=== PATIENT | male | born 1935 | race Caucasian/White ===

== ENCOUNTER 2017-02-07 09:51 | Emergency (ER) | payer MEDICARE ==
[~2017-02-07] VITALS: Ht 177.8 cm; Wt 79.0 kg
[~2017-02-07 09:51] MED LIST: AMANTADINE100 MG PO; ATORVASTATIN CA40 MG PO; BACTRIM1 TAB PO; CELEXA20 MG PO; LANTUS100 MG/ML SC; LISINOPRIL10 MG PO; LOPID600 MG PO; METHIMAZOLE10 MG PO; PYRIDIUM200 MG PO
[2017-02-07 11:46] LABS: HEMATOCRIT 42.2 % (39.0-50.0); HEMOGLOBIN 13.7 g/dl (14.0-18.0); IMMATURE GRANULOCYTES 0.9 % (0.0-1.0); MEAN CELL VOLUME 84.4 fL CALC (80.0-100.0); MEAN CORPUSCULAR HGB 27.4 pG CALC (26.0-32.0); MEAN CORPUSCULAR HGB CONC 32.5 g/L CALC (32.0-36.0); NEUT# 13.64 thou/uL (1.82-7.42); RED CELL DISTRI WIDTH 14.1 % (11.5-15.5)
[2017-02-07 12:08] LABS: ALBUMIN 4.2 g/dL (3.2-5.0); ALKALINE PHOSPHATASE 103 u/l (38-126); ANION GAP 23 (6-22 (CALC)); BILIRUBIN, TOTAL 1.9 mg/dL (0.0-1.4); BUN 29 mg/dL (8-23); BUN/CREATININE RATIO 30 (12-20 (CALC)); CALCIUM 9.8 mg/dL (8.4-10.2); CARBON DIOXIDE 24 mmol/l (22-30); CHLORIDE 97 mmol/l (95-108); GFR > 60 ML/MIN (>=60 (CALC)); GFR FOR AFR.AMER. > 60 ML/MIN (>=60 (CALC)); GLUCOSE 322 mg/dL (82-115); POTASSIUM 4.9 mmol/l (3.5-5.1); SGOT/AST 24 u/l (19-48); SGPT/ALT 28 u/l (11-66); SODIUM 138 mmol/l (137-146); TOTAL PROTEIN 7.3 g/dL (6.3-8.2)
[2017-02-07 12:34] LABS: URINE BILIRUBIN - DIPSTICK MODERATE (NEGATIVE); URINE BLOOD DIPSTICK SMALL (NEGATIVE); URINE CLARITY SLIGHT CLOUDY; URINE COLOR DK. YELLOW; URINE GLUCOSE - DIPSTICK >=1000 mg/dL (NEGATIVE); URINE KETONE 40 mg/dL (NEGATIVE); URINE LEUK ESTERASE NEGATIVE (NEGATIVE); URINE NITRITE - DIPSTICK NEGATIVE (Negative); URINE PH 5.5 (4.5-8.0); URINE PROTEIN - DIPSTICK 100 mg/dL (NEG-TRACE); URINE SPECIFIC GRAVITY >=1.030
[2017-02-07 12:35] LABS: URINE EPITHELIAL CELLS FEW EPI/hpf (0-FEW); URINE MUCUS MODERATE hpf (NONE-FEW); URINE RBC 0-2 RBC/hpf (0-5)
[2017-02-07] MEDS ORDERED: RESTORIL15 M1 PO (12:54)
[2017-02-07 13:21] VITALS: BP 138/71
== END 2017-02-07 13:11 | disposition home or self-care (01) ==
LOC: ED 09:51
PROVIDERS: Emergency Medicine
DX: R10.31 Right lower quadrant pain (principal); R11.2 Nausea with vomiting, unspecified; Z79.899 Other long term (current) drug therapy; I10 Essential (primary) hypertension; C34.90 Malignant neoplasm of unspecified part of unspecified bronchus or lung; Z86.73 Personal history of transient ischemic attack (TIA), and cerebral infarction without residual deficits; R53.1 Weakness

== ENCOUNTER 2017-07-10 16:53 | Inpatient (IN) | payer MEDICARE ==
[~2017-07-10] VITALS: Ht 180.3 cm; Wt 64.1 kg
[~2017-07-10 16:53] MED LIST changes: +LOVENOX 10100 MG/1 M SC; +RESTORIL15 M1 PO
--- NOTE | 2017-07-10 17:11 | NUR ---
PT TO ER ROOM 8 BY EMS
--- NOTE | 2017-07-10 18:00 | NUR ---
PT AMBULATED TO THE BATHROOM WITH A STEADY GAIT TO OBTAIN URINE SAMPLE.
[2017-07-10 18:43] LABS: HEMATOCRIT 43.5 % (39.0-50.0); HEMOGLOBIN 14.2 g/dl (14.0-18.0); IMMATURE GRANULOCYTES 0.4 % (0.0-1.0); MEAN CELL VOLUME 85.6 fL CALC (80.0-100.0); MEAN CORPUSCULAR HGB CONC 32.6 g/L CALC (32.0-36.0); NEUT# 7.13 thou/uL (1.82-7.42); RED BLOOD COUNT 5.08 mill/uL (4.70-6.10); RED CELL DISTRI WIDTH 12.9 % (11.5-15.5)
--- NOTE | 2017-07-10 18:50 | NUR ---
REPORT GIVEN TO SHAYLA OBRIEN.
--- NOTE | 2017-07-10 18:55 | NUR ---
IN ROOM INTRODUCED SELF TO PT. NO C/O AT THIS TIME. FAMILY AT SIDE.
[2017-07-10] MEDS ORDERED: ELIQUIS5 MG PO (18:58)
[2017-07-10 20:39] LABS: ANION GAP 19 (6-22 (CALC)); BUN 29 mg/dL (8-23); BUN/CREATININE RATIO 27 (12-20 (CALC)); CARBON DIOXIDE 24 mmol/l (22-30); CHLORIDE 97 mmol/l (95-108); CREATININE 1.1 mg/dL (0.7-1.3); GFR > 60 ML/MIN (>=60 (CALC)); GFR FOR AFR.AMER. > 60 ML/MIN (>=60 (CALC)); POTASSIUM 4.9 mmol/l (3.5-5.1); SODIUM 136 mmol/l (137-146)
[2017-07-10 20:56] LABS: URINE BILIRUBIN - DIPSTICK NEGATIVE (NEGATIVE); URINE BLOOD DIPSTICK MODERATE (NEGATIVE); URINE COLOR YELLOW; URINE GLUCOSE - DIPSTICK >=1000 mg/dL (NEGATIVE); URINE KETONE 15 mg/dL (NEGATIVE); URINE LEUK ESTERASE NEGATIVE (NEGATIVE); URINE NITRITE - DIPSTICK NEGATIVE (Negative); URINE PH 5.5 (4.5-8.0); URINE PROTEIN - DIPSTICK 30 mg/dL (NEG-TRACE); URINE SPECIFIC GRAVITY 1.025; URINE UROBILINOGEN - DIPSTICK 0.2 E.U./dL (0.2)
[2017-07-10 21:00] LABS: URINE CLARITY CLEAR
[2017-07-10 21:08] LABS: URINE SQUAMOUS EPITHELIAL CELL RARE EPI/hpf (0-FEW)
--- NOTE | 2017-07-10 21:25 | NUR ---
IVF, IV ABT'S AND IV INSULIN GIVEN PER MD ORDER.
--- NOTE | 2017-07-10 22:18 | NUR ---
Admission Note Report Given to: MELISSA MCGUIRE Transported by: Wheelchair X Stretcher Transported with: X Nurse Transporter X Patent IV O2 X Mold Washer
--- NOTE | 2017-07-10 22:30 | NUR ---
PT TO ROOM 280 VIA STRETCHER ACCOMPANIED BY ER STAFF. PT ABLE TO AMBULATE TO BED. WITH MINIMAL ASSISTANCE.
--- NOTE | 2017-07-10 22:30 | NUR ---
PT. TRANSFERED TO [place] VIA STRETCHER, NO C/O.
[2017-07-10 22:40] VITALS: BP 153/82
--- NOTE | 2017-07-10 23:00 | NUR ---
ADMISSION ASSESSMENT COMPLETED AT THIS TIME. PT IS ALERT AND ORIENTED X3. WITH PERIODS OF CONFUSION. EASILY REORIENTED. REPORTS GIVEN TO MELISSA MCGUIRE TO ASSUME CARE.
[2017-07-11] VITALS (7 sets, daily range): BP systolic 130–190; BP diastolic 62–100
--- NOTE | 2017-07-11 | NUR ---
SPOKE WITH DR. EDWINA PEARCE PATIENT BS-[id number] WHEN ADMITTED TO MED/SURG-WILL START INSULIN COVERAGE TONIGHT AND PUT IN ORDERS. WILL MEDICATE WHEN PROFILED ON EMAR. PATIENT UP TO THE BR FOR BM. STATES THAT HE IS VOIDING WITHOUT ANY DIFFICULTY. RESTING IN BED. ALERT AND ORIENTEDX3. IV SITE TO RIGHT HAND. SITE APPEARS HEALTHY AT THIS TIME. ORIENTED TO ROOM AND SURROUNDINGS. INSTRUCTED ON USE OF NURSE CALL LIGHT SYSTEM, PHONE AND TV REMOTE. CALL LIGHT IN REACH. SAFETY PRECAUTIONS REINFORCED. CALL LIGHT IN REACH. WILL CONT TO MONITOR.
--- NOTE | 2017-07-11 01:15 | NUR ---
PATIENT MEDICATED ORDERED. RESTING IN BED AT THIS TIME WITH NO COMPLAINTS. CALL LIGHT IN REACH. WILL CONT TO MONITOR.
--- NOTE | 2017-07-11 02:59 | NUR ---
PATIENT AWAKE-STATES THAT NEED TO GO TO THE BR-SB ASSIST TO BR-SLIGHTLY UNSTEADY ON HIS FEET. BACK TO BED-CALL LIGHT IN REACH. SAFETY PRECAUTIONS REINFORCED. WILL CONT TO MONITOR.
--- NOTE | 2017-07-11 06:03 | NUR ---
RESTING IN BED AT THIS TIME WITH NO COMPLAINTS-DIDN'T SLEEP MUCH TONIGHT. SAFETY PRECAUTIONS REINFORCED.CALL LIGHT IN REACH, WILLCONT TO MONITOR.
[2017-07-11 06:34] LABS: HEMOGLOBIN 12.5 g/dl (14.0-18.0); MEAN CELL VOLUME 83.1 fL CALC (80.0-100.0); MEAN CORPUSCULAR HGB 28.5 pG CALC (26.0-32.0); MEAN CORPUSCULAR HGB CONC 34.2 g/L CALC (32.0-36.0); RED BLOOD COUNT 4.39 mill/uL (4.70-6.10); RED CELL DISTRI WIDTH 12.8 % (11.5-15.5)
[2017-07-11 06:35] LABS: HEMATOCRIT 36.5 % (39.0-50.0)
[2017-07-11 06:54] LABS: BUN 24 mg/dL (8-23); BUN/CREATININE RATIO 31 (12-20 (CALC)); CARBON DIOXIDE 26 mmol/l (22-30); CHLORIDE 105 mmol/l (95-108); CREATININE 0.8 mg/dL (0.7-1.3); GFR > 60 ML/MIN (>=60 (CALC)); GFR FOR AFR.AMER. > 60 ML/MIN (>=60 (CALC)); MAGNESIUM 1.8 mg/dL (1.6-2.3); SODIUM 142 mmol/l (137-146)
--- NOTE | 2017-07-11 07:00 | NUR ---
SHIFT CHANGE REPORT FROM ANA PAULA TORRES AWAKE ALERT AND ORIENTED RESTING IN BED, NO C/O DISCOMFORT, ASKING ABOUT MEAL AT THIS TIME AND INFORMED HE WILL BE SERVED SOON TRAYS ARRIVE, GAVE PLEASANT VERBAL RESPONSE, WILL CONTINUE TO MONITOR, CALL GUIDO IN REACH.
[2017-07-11 07:01] LABS: ANION GAP 15 (6-22 (CALC))
[2017-07-11 07:04] LABS: POTASSIUM 3.8 mmol/l (3.5-5.1)
--- NOTE | 2017-07-11 12:33 | NUR ---
SITTING UP AT BEDSIDE HAVING MEAL, ALL NEEDS ADDRESSED, CALL GUIDO IN REACH.
--- NOTE | 2017-07-11 16:31 | NUR ---
SLEEPING AT THIS TIME, NO SIGN DISCOMFORT, CALL GUIDO IN REACH.
--- NOTE | 2017-07-11 19:30 | NUR ---
PATIENT RESTING IN BED AWAKE ALERT AND ORIENTED WITH NO COMPLAINTS AT THIS TIME. PATIENT IS SLIGHTLY [place] EVEN WITH HEARING AIDS. HEP LOCK TO RIGHT HAND INTACT-APPEARS HEALTHY AT THIS TIME. SAFETY PRECAUTIONS REINFORCED.CALL LIGHT IN REACH. WILL CONT TO MONITOR.
--- NOTE | 2017-07-11 20:35 | NUR ---
BP IS STILL RUNNING HIGH-190/110. DR. BLAND NTIFIED AND WILL ORDER MED FOR HTN. WILL ADMINISTER WHEN PROFILED. PATIENT ASSISTED TO BR-STILL SLIGHTLY UNSTEADY BUT BETTER THAN LAST NIGHT. INSTRUCTED TO CALL FOR ASSISTANCE TO COME OUT OF BR. VERBALIZES UNDERSTANDING OF THE STATED. CALL LIGHT STING IS IN REACH.
--- NOTE | 2017-07-11 21:15 | NUR ---
PATIENT MEDICATED FOR HTN WITH APRESOLINE 10MG IVP ORDERED. PATIENT COVERED FOR BS-307 WITH NOVALOG 7UNITS SQ AND WITH SCHEDULED LEVEMIR 25UNITSAS ORDERED. HS SNACK PROVIDED. SAFETY PRECAUTIONS REINFORCED. CALL LIGHT IN REACH. WILL CONT TO MONITOR.
--- NOTE | 2017-07-11 22:00 | NUR ---
BP-150/80. IV RIGHT HAND IS LEAKING AND WAS D/ANGEL. NEW IV SITE STARTED TO RIGHT FOREARM-#22 GAUGE WITH GOOD BLOOD RETURN. ROCEPHIN HUNG ORDERED. PATIENT RESTING IN BED WITH NO COMPLAINTS AT THIS TIME. CALL LIGHT IN REACH. WILL CONT TO MONITOR.
[2017-07-12] VITALS: BP 170/85
--- NOTE | 2017-07-12 04:10 | NUR ---
PATIENT HAS BEEN UP SEVERAL TIMES DURING THE NIGHT-CONFUSED AND UNSTEADY ON HIS FEET. CURRENTLY HE IS IN BED WITH BED ALARM IN PLACE FOR PATIENT SAFETY. HEP LOCK TO RIGHT FOREARM INTACT. CALL LIGHT IN REACH. WILL CONT TO MONITOR.
--- NOTE | 2017-07-12 06:10 | NUR ---
PATIENT PULLED OUT IV SITE TO RIGHT FOREARM AND FOUND ON BEDSIDE TABLE. NEW IV SITE STARTED TO LEFT UPPER ARM-#22GAUGE WITH GOOD BLOOD RETURN. PATIENT IS ORIENTED TO PERSON AND PLACE AT THIS TIME BUT BED ALARM PLACED FOR PATIENT SAFETY. PATIENT DIDN'T SLEEP MUCH AGAIN TONIGHT. CONFUSED AT TIMES. CALL LIGHT IN REACH. WILL CONT TO MONITOR.
[2017-07-12 06:26] LABS: HEMOGLOBIN 12.7 g/dl (14.0-18.0); MEAN CORPUSCULAR HGB 27.7 pG CALC (26.0-32.0); MEAN CORPUSCULAR HGB CONC 33.4 g/L CALC (32.0-36.0); RED BLOOD COUNT 4.58 mill/uL (4.70-6.10); RED CELL DISTRI WIDTH 12.9 % (11.5-15.5)
[2017-07-12 06:38] LABS: POTASSIUM 3.7 mmol/l (3.5-5.1)
--- NOTE | 2017-07-12 07:00 | NUR ---
SHIFT CHANGE REPORT FROM ANA PAULA TORRES AWAKE ALERT AND ORIENTED RESTING IN BED, NO C/O DISCOMFORT, STATES HE DID OT SLEEP WELL AT HS AND NIGHT RN ALSO REPORTED HE WAS RESTLESS ALL NIGHT AND AFTER GIVING RESTORIL HE GOT WORSE. WILL CONTINUE TO MONITOR, CALL GUIDO IN REACH.
[2017-07-12 08:12] VITALS: BP 148/78
[2017-07-12] MEDS ORDERED: TAMSULOSIN0.4 MG PO (10:02)
[2017-07-12] MEDS ORDERED: OXYBUTYNIN CHLO10 MG PO (10:03)
[2017-07-12] MEDS ORDERED: ZOFRAN ODT8 MG PO (10:04)
[2017-07-12 11:00] VITALS: BP 167/84
[2017-07-12] MEDS ORDERED: TOUJEO SOL300 UNIT/M SC (12:36)
[2017-07-12] MEDS ORDERED: Levaquin PO (12:37)
--- NOTE | 2017-07-12 12:50 | NUR ---
PATIENT SEEN THIS AM FOR GAIT TRAINING. PATIENT FOUND LYING IN BED WITH PATIENTS IN THE ROOM. PATIENT TRANSFERED FROM SUPINE TO SITTING INDEPENDENTLY. GAIT BELT WAS APPLIED PRIOR TO ACTIVITY. EDUCATED PATIENT ON SAFE SIT TO STAND, STAND TO SIT, AND AMBULATION WITH STRAIGHT CANE. PATIENT PERFORMED SIT TO STAND AND AMBULATED WITH STRAIGHT CANE 20 FEET IN ROOM USING A STEP-TO 3 POINT GAIT PATTERN WITH SBA. PATIENT LEFT IN SITTING IN RECLINER COMFORTABLY WITH CALL GUIDO IN REACH AND LUNCH TRAY AND TABLE WITHIN REACH. REMAINED IN ROOM TO SUPERVISE PATIENT. NO QUESTIONS OF CONCERNS FOLLOWING TREATMENT.
--- NOTE | 2017-07-12 14:28 | NUR ---
Discharge instructions given. Patient verbalizes understanding of same. Discharged in good condition via Wheelchair to Home with family. All belongings sent with pt.
== END 2017-07-12 14:18 | disposition home health service (06) | DRG 190 ==
LOC: ED 16:53 → ED-I 20:50 → ED 21:32 → MS2 21:33 → UNDODEPER 07-11 22:30 → MS2 07-12 14:18
PROVIDERS: Emergency Medicine; Family Medicine; Nurse Practitioner Family; ADMIT Internal Medicine; ATTEND Internal Medicine
PROC: 3E0234Z Introduction of Serum, Toxoid and Vaccine into Muscle, Percutaneous Approach (ICD-10-PCS; principal; 2017-07-11)
DX: J44.0 Chronic obstructive pulmonary disease with (acute) lower respiratory infection (principal); J18.9 Pneumonia, unspecified organism; R64 Cachexia; C79.9 Secondary malignant neoplasm of unspecified site; E11.65 Type 2 diabetes mellitus with hyperglycemia; C34.90 Malignant neoplasm of unspecified part of unspecified bronchus or lung; F03.90 Unspecified dementia, unspecified severity, without behavioral disturbance, psychotic disturbance, mood disturbance, and anxiety; Z68.1 Body mass index [BMI] 19.9 or less, adult; Z23 Encounter for immunization; Z91.14 Patient's other noncompliance with medication regimen; Z86.718 Personal history of other venous thrombosis and embolism; Z92.21 Personal history of antineoplastic chemotherapy; Z92.3 Personal history of irradiation; Z87.891 Personal history of nicotine dependence; Z79.4 Long term (current) use of insulin; Z98.890 Other specified postprocedural states; Z79.01 Long term (current) use of anticoagulants